=== PATIENT | male | born 1990 | race Caucasian/White ===

== ENCOUNTER 2016-12-07 22:55 | Emergency (ER) | payer OTHER ==
[~2016-12-07] VITALS: Ht 170.2 cm; Wt 61.3 kg
[~2016-12-07 22:55] MED LIST: AUGMENTIN875 MG PO; LORTAB 5-325 M1 EACH PO; NAPROSYN500 MG PO
[2016-12-08 00:44] VITALS: BP 120/83
== END 2016-12-08 00:45 | disposition home or self-care (01) ==
LOC: RME 22:55 → EME 22:55 → RME 12-08 00:45
DX: S61.012A Laceration without foreign body of left thumb without damage to nail, initial encounter (principal); Y99.0 Civilian activity done for income or pay; W26.8XXA Contact with other sharp object(s), not elsewhere classified, initial encounter; Z23 Encounter for immunization
CPT/HCPCS: 99281; 99284; S0020

== ENCOUNTER 2017-05-16 15:49 | Emergency (ER) | payer OTHER ==
[~2017-05-16] VITALS: Ht 172.7 cm; Wt 56.1 kg
[2017-05-16 16:51] LABS: HEMATOCRIT 38.7 % (38.0-50.0); MCH 27.9 PG (29.0-34.0); MCHC 32.8 G/DL (30.0-36.0); MCV 85.1 FL (86-99); MEAN PLAT.VOLUME 9.4 uM^3 (9.0-12.4); PLATELET COUNT 282 K/uL (156-360); RBC DIS.WIDTH-CV 14.6 % (11.8-14.6); RBC DIS.WIDTH-SD 45.6 % (39-53); RED BLOOD COUNT 4.55 M/uL (4.00-5.50); WHITE BLOOD COUNT 9.7 K/uL (4.1-10.2)
[2017-05-16 17:01] LABS: CHLORIDE 109 mEq/L (99-109); POTASSIUM 3.6 mEq/L (3.7-5.4); SODIUM 140 mEq/L (136-147)
[2017-05-16 17:03] LABS: GLUCOSE 96 mg/dL (70-99)
[2017-05-16 17:05] LABS: ANION GAP 9 MEQ/L (2-14)
[2017-05-16 17:06] LABS: SERUM ETHYL ALCOHOL < 10 mg/dL
[2017-05-16 17:07] LABS: GFR ESTIMATE (CALCULATED) > 59 mL/min/
[2017-05-16 17:09] LABS: UREA NITROGEN (BUN) 10 mg/dL (9-23)
[2017-05-16 17:10] LABS: SALICYLATE < 5.0 MG/DL (15-30)
[2017-05-16 17:48] VITALS: BP 147/90
== END 2017-05-16 17:50 | disposition home or self-care (01) ==
LOC: EME 15:49
PROVIDERS: Emergency Medicine
DX: F43.21 Adjustment disorder with depressed mood (principal); R45.851 Suicidal ideations; Z91.5 Personal history of self-harm; F17.200 Nicotine dependence, unspecified, uncomplicated
CPT/HCPCS: 80048; 85027; 90839; 99281; 99285; G0480

== ENCOUNTER 2017-06-08 18:20 | Emergency (ER) | payer OTHER ==
[~2017-06-08] VITALS: Ht 170.2 cm; Wt 72.7 kg
[2017-06-08 21:30] LABS: ADD MIUA? NO; BILIRUBIN NEGATIVE; BLOOD NEGATIVE; COLOR YELLOW ((YELLOW)); GLUCOSE (STRIP) NEGATIVE; KETONES NEGATIVE; LEUKOCYTES NEGATIVE; NITRITE NEGATIVE; PROTEIN (STRIP) NEGATIVE; SPECIFIC GRAVITY 1.009 (1.000-1.030); UROBILINOGEN 0.2 MG/DL (0.2-1.0)
[2017-06-08] MEDS ORDERED: REGLAN10 MG PO (21:52)
[2017-06-08] MEDS ORDERED: NAPROSYN500 MG PO (21:52)
[2017-06-08] MEDS ORDERED: IMITREX100 MG PO (21:52)
[2017-06-08 22:26] VITALS: BP 122/84
== END 2017-06-08 22:28 | disposition home or self-care (01) ==
LOC: EME 18:20
PROVIDERS: Physician Assistant
DX: G43.909 Migraine, unspecified, not intractable, without status migrainosus (principal); F17.200 Nicotine dependence, unspecified, uncomplicated
CPT/HCPCS: 70450; 81003; 99281; 99284; J1200; J1885; J2765; J7030

== ENCOUNTER 2017-06-10 20:29 | Emergency (ER) | payer OTHER ==
[~2017-06-10] VITALS: Ht 170.2 cm; Wt 55.9 kg
[~2017-06-10 20:29] MED LIST changes: +IMITREX100 MG PO; +REGLAN10 MG PO
[2017-06-10 21:30] LABS: HEMATOCRIT 44.2 % (38.0-50.0); MCH 28.2 PG (29.0-34.0); MCHC 33.9 G/DL (30.0-36.0); MCV 83.1 FL (86-99); MEAN PLAT.VOLUME 9.2 uM^3 (9.0-12.4); PLATELET COUNT 325 K/uL (156-360); RBC DIS.WIDTH-CV 14.3 % (11.8-14.6); RED BLOOD COUNT 5.32 M/uL (4.00-5.50); WHITE BLOOD COUNT 12.5 K/uL (4.1-10.2)
[2017-06-10 21:39] LABS: CHLORIDE 107 mEq/L (99-109); POTASSIUM 3.5 mEq/L (3.7-5.4); SODIUM 140 mEq/L (136-147)
[2017-06-10 21:41] LABS: GLUCOSE 102 mg/dL (70-99)
[2017-06-10 21:43] LABS: ANION GAP 11 MEQ/L (2-14); TOTAL BILIRUBIN 0.8 mg/dL (0.0-1.0)
[2017-06-10 21:45] LABS: ALKALINE PHOSPHATASE 111 IU/L (3-129); GFR ESTIMATE (CALCULATED) > 59 mL/min/
[2017-06-10 21:46] LABS: UREA NITROGEN (BUN) 7 mg/dL (9-23)
[2017-06-10 22:38] LABS: BILIRUBIN NEGATIVE; BLOOD NEGATIVE; COLOR YELLOW ((YELLOW)); GLUCOSE (STRIP) NEGATIVE; KETONES NEGATIVE; LEUKOCYTES NEGATIVE; NITRITE NEGATIVE; PROTEIN (STRIP) NEGATIVE; SPECIFIC GRAVITY 1.009 (1.000-1.030); UROBILINOGEN 0.2 MG/DL (0.2-1.0)
[2017-06-10 22:41] LABS: ADD MIUA? NO
[2017-06-10] MEDS ORDERED: MOTRIN800 MG PO (23:06)
[2017-06-10 23:13] LABS: AMPHETAMINE NEGATIVE (500 ng/mL); BARBITURATES NEGATIVE (200 ng/mL); BENZODIAZEPINES NEGATIVE (150 ng/mL); COCAINE NEGATIVE (150 ng/mL); INTERNAL CONTROLS VALID? YES; METHADONE NEGATIVE (200 ng/mL); METHAMPHETAMINE NEGATIVE (500 ng/mL); OPIATES (MORPHINE) NEGATIVE (100 ng/mL); OXYCODONE NEGATIVE (100 ng/mL); PHENCYCLIDINE NEGATIVE (25 ng/mL); PROPOXYPHENE NEGATIVE (300 ng/mL); THC CANNABINOIDS PRESUMPTIVE POSITIVE (50 ng/mL); TRICYCLIC ANTIDEPRESSANTS NEGATIVE (300 ng/mL)
[2017-06-10 23:14] LABS: ADD MEDTOX COMMENT Y
[2017-06-10 23:33] VITALS: BP 116/64
== END 2017-06-10 23:34 | disposition home or self-care (01) ==
LOC: EME 20:29 → RME 20:29
PROVIDERS: Nurse Practitioner Family
DX: R51 Headache (principal); F12.10 Cannabis abuse, uncomplicated; F17.200 Nicotine dependence, unspecified, uncomplicated
CPT/HCPCS: 80053; 81003; 84999; 85027; 99281; 99284; J1200; J1885; J2765; J7030

== ENCOUNTER 2017-06-20 14:56 | Emergency (ER) | payer OTHER ==
[~2017-06-20] VITALS: Ht 170.2 cm; Wt 72.7 kg
[~2017-06-20 14:56] MED LIST changes: +MOTRIN800 MG PO
[2017-06-20 17:10] LABS: HEMATOCRIT 42.6 % (38.0-50.0); MCH 28.1 PG (29.0-34.0); MCHC 33.3 G/DL (30.0-36.0); MCV 84.2 FL (86-99); MEAN PLAT.VOLUME 9.4 uM^3 (9.0-12.4); PLATELET COUNT 325 K/uL (156-360); RBC DIS.WIDTH-CV 14.4 % (11.8-14.6); RBC DIS.WIDTH-SD 43.9 % (39-53); RED BLOOD COUNT 5.06 M/uL (4.00-5.50); WHITE BLOOD COUNT 13.1 K/uL (4.1-10.2)
[2017-06-20 17:39] LABS: ANION GAP 9 MEQ/L (2-14); CHLORIDE 105 MEQ/L (99-109); GFR ESTIMATE (CALCULATED) > 59 mL/min/; GLUCOSE 92 mg/dL (70-99); POTASSIUM 3.4 MEQ/L (3.7-5.4); SAMPLE HEMOLYSIS CHECK 0; SAMPLE ICTERIC CHECK 0; SAMPLE LIPEMIA CHECK 0; SODIUM 141 MEQ/L (136-147); UREA NITROGEN (BUN) 21 mg/dL (9-23)
[2017-06-20] MEDS ORDERED: ZOFRAN ODT4 MG PO (18:50)
[2017-06-20] MEDS ORDERED: PERCOCET 5/31 TABLET PO (18:50)
[2017-06-20 19:04] VITALS: BP 143/85
== END 2017-06-20 19:05 | disposition home or self-care (01) ==
LOC: RME 14:56 → EME 14:56 → RME 19:05
PROVIDERS: Nurse Practitioner Family
DX: G43.909 Migraine, unspecified, not intractable, without status migrainosus (principal); M41.9 Scoliosis, unspecified; Z87.891 Personal history of nicotine dependence
CPT/HCPCS: 70450; 72070; 80048; 85027; 99281; 99284; J3010